=== PATIENT | male | born 1995 | race Caucasian/White ===

== ENCOUNTER 2017-11-10 16:41 | Emergency (ER) | payer SELFPAY ==
[~2017-11-10] VITALS: Ht 188 cm; Wt 77.2 kg
[2017-11-10 16:44] VITALS: BP 139/88
[2017-11-10 17:07] LABS: HEMATOCRIT 38.8 % (38.0-50.0); MCH 29.8 PG (29.0-34.0); MCV 90.4 FL (86-99); MEAN PLAT.VOLUME 9.6 uM^3 (9.0-12.4); PLATELET COUNT 225 K/uL (156-360); RBC DIS.WIDTH-CV 14.5 % (11.8-14.6); RBC DIS.WIDTH-SD 47.6 % (39-53); RED BLOOD COUNT 4.29 M/uL (4.00-5.50); WHITE BLOOD COUNT 4.1 K/uL (4.1-10.2)
[2017-11-10 17:18] LABS: CHLORIDE 102 mEq/L (99-109); POTASSIUM 3.9 mEq/L (3.7-5.4)
[2017-11-10 17:19] LABS: SODIUM 140 mEq/L (136-147)
[2017-11-10 17:21] LABS: GLUCOSE 90 mg/dL (70-99)
[2017-11-10 17:22] LABS: ANION GAP 9 MEQ/L (2-14)
[2017-11-10 17:23] LABS: TOTAL BILIRUBIN 0.4 mg/dL (0.0-1.0)
[2017-11-10 17:24] LABS: ALKALINE PHOSPHATASE 98 IU/L (3-129)
[2017-11-10 17:25] LABS: GFR ESTIMATE (CALCULATED) > 59 mL/min/ (58.99-99999)
[2017-11-10 17:26] LABS: UREA NITROGEN (BUN) 13 mg/dL (9-23)
[2017-11-10 17:56] LABS: EOSINOPHIL (%) 2.5 % (0-5); EOSINOPHIL COUNT 0.1 K/uL (0-0.3); IMMATURE GRANULOCYTE (%) 2.2 % (0.0-0.7); IMMATURE GRANULOCYTE COUNT 0.1 K/uL; INSTRUMENT ABS NEUTROPHIL CT 0.1 K/uL; LYMPHOCYTE COUNT 2.8 K/uL (1.0-2.8); MONOCYTE (%) 23.7 % (3-12); NEUTROPHIL (%) 2.3 % (45-76); NEUTROPHIL COUNT 0.1 K/uL (1.8-6.4); PLAT.SUFFICIENCY ADEQUATE
== END 2017-11-10 20:15 | disposition left against medical advice (07) ==
LOC: EME 16:41
DX: R79.89 Other specified abnormal findings of blood chemistry (principal); Z53.21 Procedure and treatment not carried out due to patient leaving prior to being seen by health care provider
CPT/HCPCS: 80053; 81003; 83605; 85025; 99281

== ENCOUNTER → 2017-12-19 | Outpatient (CLI) | payer OTHER ==
[2017-12-19 15:07] LABS: C-REACTIVE PROTEIN 2.3 MG/L (0-10); CHLORIDE 100 MEQ/L (99-109); CREATININE 0.7 MG/DL (0.6-1.3); GFR ESTIMATE (CALCULATED) > 59 mL/min/ (58.99-99999); GLUCOSE 94 mg/dL (70-99); POTASSIUM 4.1 MEQ/L (3.7-5.4); SODIUM 133 MEQ/L (136-147); UREA NITROGEN (BUN) 20 mg/dL (9-23)
== END | disposition home or self-care (01) ==
LOC: PICC 10:00
PROVIDERS: Internal Medicine
DX: M86.9 Osteomyelitis, unspecified (principal)
CPT/HCPCS: 80048; 85651; 86140; C1894